=== PATIENT | male | born 1955 | race African-American/Black ===

== ENCOUNTER 2016-07-26 19:52 | Emergency (ER) | payer MEDICAID ==
[~2016-07-26] VITALS: Ht 185.4 cm; Wt 112.0 kg
[~2016-07-26 19:52] MED LIST: IBUPROFEN600 MG ORAL; TRAMADOL HCL50 MG ORAL
[2016-07-26 20:19] VITALS: BP 161/84
[2016-07-26] MEDS ORDERED: TdaP Vaccine 0.5ml Syr IM ONE (21:00)
[2016-07-26] MEDS ORDERED: Acetaminophen 500mg (ES) tab ORAL ONE (21:00)
--- NOTE | 2016-07-26 21:00 | Emergency Room Report ---
History of Present Illness General Chief Complaint: Head, Face, Neck Trauma Source: Patient Present Illness HPI 61-year-old male presents emergency department complaining of headache, laceration to the bridge of the nose, right knee pain and upper lip swelling with bruising status post accidentally walking into a building window thinking it was a door. he denies loss of consciousness he recalls the entire event, patient denies taking taking but bending medication. Patient reports 5/10 headache described as pressure in the frontal portion of his head. Patient denies visual changes patient denies tenderness to the nose. Patient reports bleeding has subsided at this time he does not know when his last tetanus vaccination was. he reports mild bruising to the anterior right knee with a 5/ 10 pain exacerbated upon palpation. Patient states he is able to bear weight. Denies numbness tingling or loss of sensation or gross motor movements of the extremities, incontinence of bowel or bladder. Denies CP, Palpitations, LOC, AMS , dizziness, Changes in Vision, Sensation, paresthesias, or a sudden severe headache. Allergies: Coded Allergies: Collazo Meat (Verified Allergy, Unknown, 01/11/16) PENICILLINS (Verified Allergy, Unknown, 01/11/16) [id number] REDUCTASE INHIBITOR (Verified Allergy, Unknown, 01/11/16) Patient History Past Medical History: see triage record Past Surgical History: none Pertinent Family History: none Reviewed Nursing Documentation: PMH: Agreed, PSxH: Agreed Nursing Documentation-PMH Past Medical History: No History, Except For Hx Hypertension: Yes Hx Diabetes: Yes History Of Psychiatric Problem: No Hx Neurological Problems: No - Back surgery(Cervical level) in 2005 Review of Systems All Other Systems: negative except mentioned in HPI Physical Exam Vital Signs Date Time Temp Pulse Resp B/P Pulse Ox O2 Delivery O2 Flow Rate FiO2 07/26/16 20:19 98.2 61 20 161/84 98 Room Air Sp02 EP Interpretation: reviewed, normal General Appearance: no apparent distress, alert, GCS 15, non-toxic Head: normocephalic, other - swelling to the upper lip, superficial abrasions to the lip, no through and through lacerations, no teeth tenderness, nasal bridge laceration. no nasal TTP, no evidence of septal hematoma. Eyes: bilateral eye PERRL, bilateral eye normal inspection ENT: hearing grossly normal, normal pharynx, no angioedema, normal voice Neck: full range of motion, supple/symm/no masses Respiratory: chest non-tender, lungs clear, normal breath sounds, speaking full sentences Cardiovascular #1: regular rate, rhythm, no edema Cardiovascular #2: 2+ radial (R), 2+ radial (L) Gastrointestinal: normal bowel sounds, non tender, soft, no guarding, no rebound Rectal: deferred Genitourinary: normal inspection, no CVA tenderness Musculoskeletal: back normal, gait/station normal, normal range of motion, no calf tenderness, tender - right anterior knee TTP, bruising noted, no nasal TTP , no evidence of septal hematoma. Neurologic: alert, oriented x3, responsive, motor strength/tone normal, sensory intact, cerebellar normal, normal gait, speech normal, no pronator, other - equal neurology manager strength bilaterally Psychiatric: judgement/insight normal, memory normal, mood/affect normal, no suicidal/homicidal ideation Skin: normal color, no rash, warm/dry, well hydrated, other - swelling to upper lip with two superficial abrasions. , laceration - 0.4cm linear superficial well approximated laceration to the bridge of the nose. no bruising noted, no TTP Lymphatic: no adenopathy Procedures Laceration/Wound Repair Laceration/Wound Repair : Consent: Verbal Wound Location: face - nasal bridge Wound's Depth, Shape: superficial Wound Length (cm): 0 Wound Explored: clean Betadine Prep?: Yes Wound Repaired With: Dermabond Layer Closure?: No Sterile Dressing Applied?: No Splint Applied?: No Sling Applied?: No Patient Tolerated: Well Complications: None Medical Decision Making PA Attestation Dr. jackson is my supervising Physician whom patient management has been discussed with. Diagnostic Impression: Primary Impression: Superficial laceration of skin Additional Impressions: Abrasion Contusion of knee, right Head injury, acute, without loss of consciousness Qualified Codes: S09.90XA - Unspecified injury of head, initial encounter ER Course Pt. presents to the ED c/o nasal ridge laceration, tenderness to right anterior knee with mild bruising, that at 10 severity headache status post accidentally walking into a window. -Denies Loss of consciousness Ddx considered but are not limited to Fracture, dislocation, contusion, concussion Sprain/Strain/Spasm, hematoma, laceration, abrasion Vital signs: are WNL, pt. is afebrile H&PE are most consistent with contusion and mild concussion, no evidence of focal neurological deficit, no loss of consciousness. pt. so has superficial with abrasions and small nasal bridge laceration. ORDERS: PE and HPI do not indicate CT at this time. -- X-ray Right knee 3 views - negative for fx, Dislocation, or significant soft tissue injury, per preliminary read in ED by Dr. Ren ED INTERVENTIONS: - 500mg Tylenol PO -Tetanus vaccine was administered as pt. vaccination status was unknown. - The wound was copiously irrigated with normal saline, and explored for foreign body for which no FB was found. - The wound was approximated and closed using derma-[place]. -D/w Pt. reasoning for not doing Head CT, also discussed red flag symptoms to keep an eye out for that would indicate prompt return to the ED. - Pt. and responsible democrat verbalize their understanding and agreement with proposed treatment plan. DISCHARGE: At this time pt. is stable for d/c to home. Will provide printed patient care instructions, and any necessary prescriptions. Care plan and follow up instructions have been discussed with the patient prior to discharge. Last Vital Signs Date Time Temp Pulse Resp B/P Pulse Ox O2 Delivery O2 Flow Rate FiO2 07/26/16 20:19 98.2 61 20 161/84 98 Room Air Disposition: HOME, SELF-CARE Condition: Stable Patient Instructions: Contusion, [id number], Head Injury, Adult, [id number] , Nonsutured Laceration Care Additional Instructions: Take medications as directed. Follow up with PCP in 3-5 days Return sooner to ED if new symptoms occur, or current symptoms become worse. Svitlana Gannon Jul 26, 2016 21:00
[2016-07-26] MEDS ORDERED: TYLENOL EXTRA500 MG ORAL (21:38)
--- NOTE | 2016-07-29 10:28 | Diagnostic Imaging Report ---
Indication: PAIN Technique: 3 views of the right knee Comparison: None Findings:No acute fractures. No dislocations. No suprapatellar effusion. There is a small superior pole patellar osteophyte Impression:Degenerative changes. No acute bony trauma
== END 2016-07-26 21:00 | disposition home or self-care (01) ==
LOC: EMR 20:35
DX: S01.21XA Laceration without foreign body of nose, initial encounter (principal); W22.8XXA Striking against or struck by other objects, initial encounter; Y93.9 Activity, unspecified; Y92.9 Unspecified place or not applicable; Y99.9 Unspecified external cause status; R51 Headache; Z88.0 Allergy status to penicillin; Z88.8 Allergy status to other drugs, medicaments and biological substances; I10 Essential (primary) hypertension; E11.9 Type 2 diabetes mellitus without complications; S80.01XA Contusion of right knee, initial encounter; S09.8XXA Other specified injuries of head, initial encounter
CPT/HCPCS: 12011; 73562; 90471; 90715; 99284; Z7502

== ENCOUNTER 2017-02-10 22:47 | Emergency (ER) | payer MEDICAID ==
[~2017-02-10] VITALS: Ht 185.4 cm; Wt 111.1 kg
[~2017-02-10 22:47] MED LIST changes: +TYLENOL EXTRA500 MG ORAL
[2017-02-10] MEDS ORDERED: JANUVIA25 MG ORAL (22:59)
[2017-02-10] MEDS ORDERED: GLIPIZIDE5 MG ORAL (22:59)
[2017-02-10] MEDS ORDERED: ATENOLOL25 MG ORAL (22:59)
[2017-02-10 23:05] VITALS: BP 157/79
[2017-02-10] MEDS ORDERED: HYDROmorphone 1mg/ml Carpuject IM ONE (23:15)
[2017-02-10] MEDS ORDERED: HYDROCODON-ACE1 EA15 ORAL (23:18)
[2017-02-10] MEDS ORDERED: DIAZEPAM5 MG ORAL (23:18)
--- NOTE | 2017-02-10 23:19 | Emergency Room Report ---
History of Present Illness General Chief Complaint: Pain Source: Patient Present Illness HPI Is a 62-year-old male with a history of herniated disc in his neck and back. He required back surgery for. Was doing well until tonight. Complaining of neck and back pain. Neck pain is 8/10. Worse with movement. No neurological deficit. His back pain with radiation to the proximal right thigh. Throbbing in nature. Sharp in nature. He took his Latrice which helped. No incontinence of bowel or urine. No trauma. No fever or chills. Allergies: Coded Allergies: Collazo Meat (Verified Allergy, Unknown, 01/11/16) PENICILLINS (Verified Allergy, Unknown, 01/11/16) [id number] REDUCTASE INHIBITOR (Verified Allergy, Unknown, 01/11/16) Patient History Past Medical History: see triage record, old chart reviewed, DM Past Surgical History: other Pertinent Family History: none Social History: Denies: smoking Immunizations: other Reviewed Nursing Documentation: PMH: Agreed, PSxH: Agreed Nursing Documentation-PMH Hx Hypertension: Yes Hx Diabetes: Yes Hx Neurological Problems: No - Back surgery(Cervical level) in 2005 Review of Systems Eye: Denies: blurred vision, eye pain ENT: Denies: ear pain, nose congestion, throat swelling Respiratory: Denies: cough, shortness of breath Cardiovascular: Denies: chest pain, palpitations Gastrointestinal: Denies: abdominal pain, diarrhea, nausea, vomiting Musculoskeletal: Reports: back pain, Denies: joint pain Skin: Denies: rash Neurological: Denies: headache, numbness Endocrine: Denies: increased thirst, increased urine Hematologic/Lymphatic: Denies: easy bruising All Other Systems: negative except mentioned in HPI Physical Exam Vital Signs Date Time Temp Pulse Resp B/P Pulse Ox O2 Delivery O2 Flow Rate FiO2 02/10/17 22:52 97.9 67 18 157/79 98 Room Air vitals with hypertension Sp02 EP Interpretation: reviewed, normal General Appearance: well appearing, no apparent distress, alert Head: normocephalic, atraumatic Eyes: bilateral eye EOMI, bilateral eye PERRL ENT: hearing grossly normal, normal pharynx Neck: full range of motion, supple, no meningismus Respiratory: chest non-tender, lungs clear, normal breath sounds Cardiovascular #1: regular rate, rhythm, no murmur Gastrointestinal: normal bowel sounds, non tender, no mass, no organomegaly, no bruit, non-distended Musculoskeletal: back normal - Mild tenderness to the lower lumbar area on the right., gait/station normal, normal range of motion Neurologic: alert, oriented x3 Psychiatric: mood/affect normal Skin: warm/dry Medical Decision Making Diagnostic Impression: Primary Impression: Radicular pain of right lower back ER Course Patient with back pain. Most likely radiculopathy. No evidence of cauda equina syndrome, spinal epidural abscess or neoplastic process. We'll discharge home. Last Vital Signs Date Time Temp Pulse Resp B/P Pulse Ox O2 Delivery O2 Flow Rate FiO2 02/10/17 22:52 97.9 67 18 157/79 98 Room Air Status: improved Disposition: HOME, SELF-CARE Condition: Stable Scripts Diazepam* (DIAZEPAM*) 5 Mg Tablet 5 MG ORAL TID Y for For Anxiety, #20 TAB Prov: SILVERIO MUJICA M.D. 02/10/17 Hydrocodone/Acetaminophen 5-325* (HYDROCODONE/ACETAMINOPHEN 5-325*) 1 Each Tablet 1 TAB ORAL Q6H Y for For Pain, #30 TAB 0 Refills Prov: SILVERIO MUJICA M.D. 02/10/17 Additional Instructions: Followup with your DrNathalie in 7 days. Return if symptom worsen. SILVERIO MUJICA M.D. Feb 10, 2017 23:19
[2017-02-10 23:20] VITALS: BP 157/79
== END 2017-02-10 23:25 | disposition home or self-care (01) ==
LOC: EMR 23:15
DX: M54.16 Radiculopathy, lumbar region (principal); M54.2 Cervicalgia; E11.9 Type 2 diabetes mellitus without complications; M50.20 Other cervical disc displacement, unspecified cervical region; Z88.1 Allergy status to other antibiotic agents; Z88.0 Allergy status to penicillin; Z91.018 Allergy to other foods
CPT/HCPCS: 96372; 99284; J1170

== ENCOUNTER 2017-02-12 02:33 | Emergency (ER) | payer MEDICAID ==
[~2017-02-12] VITALS: Ht 185.4 cm; Wt 111.1 kg
[~2017-02-12 02:33] MED LIST changes: +ATENOLOL25 MG ORAL; +DIAZEPAM5 MG ORAL; +GLIPIZIDE5 MG ORAL; +HYDROCODON-ACE1 EA15 ORAL; +JANUVIA25 MG ORAL
[2017-02-12 02:53] VITALS: BP 167/92
[2017-02-12] MEDS ORDERED: NORCO 5-325 TA1 EAC1 ORAL (03:14)
[2017-02-12] MEDS ORDERED: HYDROmorphone 1mg/ml Carpuject IM ONE (03:15)
[2017-02-12] MEDS ORDERED: Ketorolac 60mg Inj IM ONE (03:30)
[2017-02-12 03:52] VITALS: BP 167/92
--- NOTE | 2017-02-14 14:03 | Emergency Room Report ---
History of Present Illness General Chief Complaint: Pain Source: Patient Present Illness HPI Is a 62-year-old male presented after having increased neck pain. Patient gradual onset of symptoms. Patient had prior history of cervical disc disease. Patient prior neck surgery. He denied any recent procedure. Patient stated he been having increased muscle spasms to his neck. This did not fill his medications which is present prescribed by the emergency physician last time he presented to the hospital. The patient been prescribed Valium as well as [place]. Patient followed by pain management for symptoms Allergies: Coded Allergies: Collazo Meat (Verified Allergy, Unknown, 01/11/16) PENICILLINS (Verified Allergy, Unknown, 01/11/16) [id number] REDUCTASE INHIBITOR (Verified Allergy, Unknown, 01/11/16) Patient History Past Medical History: see triage record Reviewed Nursing Documentation: PMH: Agreed, PSxH: Agreed Nursing Documentation-PMH Hx Hypertension: Yes Hx Diabetes: Yes Hx Neurological Problems: No - Back surgery(Cervical level) in 2005 Review of Systems All Other Systems: negative except mentioned in HPI Physical Exam Vital Signs Date Time Temp Pulse Resp B/P Pulse Ox O2 Delivery O2 Flow Rate FiO2 02/12/17 02:53 98.1 57 16 167/92 96 Room Air Sp02 EP Interpretation: reviewed, normal General Appearance: normal inspection, well appearing, no apparent distress, alert, GCS 15 Head: atraumatic ENT: normal ENT inspection, hearing grossly normal, normal voice Neck: normal inspection, no bony tend, limited range of motion Respiratory: normal inspection, lungs clear, normal breath sounds, no respiratory distress, no retraction, no wheezing Cardiovascular #1: regular rate, rhythm, no edema Gastrointestinal: normal inspection, normal bowel sounds, non tender, soft, no guarding, no hernia Genitourinary: no CVA tenderness Musculoskeletal: normal inspection, back normal, normal range of motion Neurologic: normal inspection, alert, oriented x3, responsive, last picker III-XII nml as tested, speech normal, motor weakness Psychiatric: normal inspection, judgement/insight normal, mood/affect normal Skin: normal inspection, normal color, no rash Medical Decision Making Diagnostic Impression: Primary Impression: Cervical disc disease ER Course Patient presented for neck pain.Differential diagnosis included vertebral artery dissection, myocardial infarction, cervical fracture, arthritis, spondylolithises. Patient's benign exam and does not appear to require any further imaging or laboratory testing at this time. Patient reports having a previous imaging studies performed. Patient has not been having any bowel or bladder dysfunction. Patient reports having gradual progressive weakness. This is currently being followed by neurosurgeon. Patient stated that he could followup with his neurosurgeon and pain management doctors. The patient is advised to have outpatient MRI for further workup. The patient was given pain medications as well as muscle relaxants previously prescribed. Patient was given prescription for same medication as previous. The [facility] database was reviewed for the patient's prior prescription history. Last Vital Signs Date Time Temp Pulse Resp B/P Pulse Ox O2 Delivery O2 Flow Rate FiO2 02/12/17 03:52 98.1 89 16 167/92 96 Room Air Status: improved Disposition: HOME, SELF-CARE Condition: Stable Scripts Hydrocodone Bit/Acetaminophen 5-325* (NORCO 5-325 TABLET*) 1 Each Tablet 1 TAB ORAL Q4H Y for For Pain, #30 TAB Prov: Marcos Gutierrez 02/12/17 Referrals: [facility],REFERRING (PCP) Patient Instructions: Cervical Radiculopathy Marcos Gutierrez Feb 14, 2017 14:03
== END 2017-02-12 03:55 | disposition home or self-care (01) ==
LOC: EMR 03:09
DX: M50.90 Cervical disc disorder, unspecified, unspecified cervical region (principal); I10 Essential (primary) hypertension; E11.9 Type 2 diabetes mellitus without complications; Z88.0 Allergy status to penicillin
CPT/HCPCS: 96372; 99283; J1170